=== PATIENT | female | born 1995 | race African-American/Black ===

== ENCOUNTER 2017-10-08 08:20 | Emergency (ER) | payer OTHER ==
[~2017-10-08] VITALS: Ht 160 cm; Wt 60.0 kg
[2017-10-08 08:24] VITALS: BP 137/94
[2017-10-08] MEDS ORDERED: IBUPROFEN 100MG/5ML UDC PO ONE (10:45)
== END 2017-10-08 11:07 | disposition left against medical advice (07) ==
LOC: ER 08:59
DX: R05 Cough (principal); Z53.21 Procedure and treatment not carried out due to patient leaving prior to being seen by health care provider

== ENCOUNTER 2018-06-04 04:44 | Emergency (ER) | payer MEDICAID ==
[~2018-06-04] VITALS: Ht 160 cm; Wt 67.7 kg
[2018-06-04 05:46] LABS: BASOPHILS % 0.5 % (0.0-2.0); EOSINOPHILS % 1.2 % (0.0-5.0); HEMATOCRIT. 37.7 % (36.0-48.0); HEMOGLOBIN. 13.1 g/dL (12.0-16.0); LYMPHOCYTES % 16.5 % (20.0-50.0); MEAN CORPUSCULAR HEMOGLOBIN 32.7 pg (28.0-32.0); NEUTROPHILS % 74.8 % (40.0-76.0); PLATELET 176 x1000/uL (130-400); RED BLOOD CELL COUNT 4.01 mill/uL (4.2-5.4); RED CELL DISTRIBUTION WIDTH 12.6 % (11.6-14.6)
[2018-06-04 05:51] LABS: CHLORIDE 106 mEq/L (98-107); PROTHROMBIN TIME 10.5 sec (9.1-11.1)
[2018-06-04 06:14] LABS: B-HCG QUANTITATIVE 37552 mIU/mL (<3)
[2018-06-04 06:30] VITALS: BP 103/67
[2018-06-04 08:23] LABS: CLARITY URINE CLEAR (CLEAR); COLOR URINE YELLOW (YELLOW); KETONES URINE NEGATIVE (NEGATIVE); LEUKOCYTE ESTERASE URINE 1+ (NEGATIVE); NITRITE URINE NEGATIVE (NEGATIVE); OCCULT BLOOD URINE NEGATIVE (NEGATIVE); PH URINE 7.5 (4.5-8.0); PROTEIN URINE NEGATIVE (NEGATIVE); SPECIFIC GRAVITY URINE 1.007 (1.005-1.030); UROBILINOGEN URINE 0.2 E.U./dL (0.2-1.0)
[2018-06-04 09:41] LABS: *AMPHETAMINES SCREEN URINE NEGATIVE (NEGATIVE); *BARBITURATES SCREEN URINE NEGATIVE (NEGATIVE); *BENZODIAZEPINES SCREEN URINE NEGATIVE (NEGATIVE); *COCAINE SCREEN URINE NEGATIVE (NEGATIVE); CANNABINOID URINE SCREEN NEGATIVE (NEGATIVE); METHADONE URINE SCREEN NEGATIVE (NEGATIVE); OPIATES URINE SCREEN NEGATIVE (NEGATIVE); PHENCYCLIDINE URINE SCREEN NEGATIVE (NEGATIVE)
== END 2018-06-04 07:05 | disposition home or self-care (01) ==
LOC: ER 04:44
DX: R10.9 Unspecified abdominal pain (principal); Y08.89XA Assault by other specified means, initial encounter
CPT/HCPCS: 36415; 80305; 84702; 99284

== ENCOUNTER 2018-06-22 09:28 | Observation (INO) | payer MEDICAID ==
[~2018-06-22] VITALS: Ht 160 cm; Wt 70.3 kg
[2018-06-22] MEDS ORDERED: FOLI0.4T2 MT (10:27)
[2018-06-22] MEDS ORDERED: PREN1TAB78 MT (10:27)
[2018-06-22] MEDS: LACTATED RINGERS 1,000 ML IV SCH ×2 (10:50→13:11)
[2018-06-22] MEDS ORDERED: ALBUTEROL (11:12)
== END 2018-06-22 14:00 | disposition home or self-care (01) ==
LOC: L&D 09:28
PROVIDERS: ADMIT Obstetrics & Gynecology; ATTEND Obstetrics & Gynecology
DX: O9A.313 Physical abuse complicating pregnancy, third trimester (principal); R51 Headache; O62.9 Abnormality of forces of labor, unspecified; Y04.0XXA Assault by unarmed brawl or fight, initial encounter; Y92.89 Other specified places as the place of occurrence of the external cause; Y93.89 Activity, other specified; Z3A.34 34 weeks gestation of pregnancy
CPT/HCPCS: 76805; 76818; 99281; G0378; 96360; 96361; J7120

== ENCOUNTER 2018-11-26 20:12 | Emergency (ER) | payer SELFPAY ==
[~2018-11-26] VITALS: Ht 165.1 cm; Wt 61.0 kg
[~2018-11-26 20:12] MED LIST: ALBUTEROL; FOLI0.4T2 MT; PREN1TAB78 MT
[2018-11-26 20:42] VITALS: BP 141/100
== END 2018-11-26 22:19 | disposition left against medical advice (07) ==
LOC: ER 20:29
DX: S09.90XA Unspecified injury of head, initial encounter (principal); Z53.21 Procedure and treatment not carried out due to patient leaving prior to being seen by health care provider

== ENCOUNTER 2018-11-27 07:01 | Emergency (ER) | payer SELFPAY ==
[~2018-11-27] VITALS: Ht 160 cm; Wt 61.0 kg
[2018-11-27 07:26] VITALS: BP 123/72
[2018-11-27] MEDS ORDERED: ACETAMINOPHEN 325MG TABLET PO ONE (08:15)
== END 2018-11-27 09:59 | disposition home or self-care (01) ==
LOC: ER 07:01
DX: S00.12XA Contusion of left eyelid and periocular area, initial encounter (principal); J45.909 Unspecified asthma, uncomplicated; F12.10 Cannabis abuse, uncomplicated; Z79.899 Other long term (current) drug therapy; Y08.89XA Assault by other specified means, initial encounter; Y93.89 Activity, other specified; Y92.89 Other specified places as the place of occurrence of the external cause; Y99.8 Other external cause status
CPT/HCPCS: 70486; 81025; 99284

== ENCOUNTER 2020-01-18 07:33 | Inpatient (IN) | payer MEDICAID ==
[~2020-01-18] VITALS: Ht 157.5 cm; Wt 78.0 kg
[2020-01-18] MEDS ORDERED: DEXT 5%/LACTATED RINGERS 1,000 ML IV SCH (08:34)
[2020-01-18] MEDS ORDERED: LACTATED RINGERS 1,000 ML IV SCH (08:34)
[2020-01-18] MEDS ORDERED: DEXT 5%/LR + PITOCIN 20UNITS/L 1,000 ML IV SCH ×3 (08:34→23:30)
[2020-01-18] MEDS ORDERED: METHYLERGONOVINE MALEATE 0.2 MG/ML IM PRN ×2 (08:45)
[2020-01-18] MEDS ORDERED: LIDOCAINE HCL 1% 20ML VIAL (Pyxis) INJ INFIL SCH ×2 (08:45)
[2020-01-18] MEDS ORDERED: NALOXONE HCL 0.4 MG/ML 1ML VIAL IM PRN ×2 (08:45)
[2020-01-18] MEDS ORDERED: CARBOPROST TROMETHAMINE 250 MCG/ML AMPUL IM PRN ×2 (08:45)
[2020-01-18] MEDS ORDERED: MISOPROSTOL 100MCG TABLET VG SCH ×2 (08:45)
[2020-01-18] MEDS ORDERED: BUTORPHANOL TARTRATE 2 MG/ML VIAL IV PRN ×2 (08:45)
[2020-01-18] MEDS: LACTATED RINGERS 1,000 ML IV SCH ×2 (08:50→11:41)
[2020-01-18 08:55] LABS: CLARITY URINE CLOUDY (CLEAR); COLOR URINE DARK YELLOW (YELLOW); KETONES URINE NEGATIVE (NEGATIVE); LEUKOCYTE ESTERASE URINE 2+ (NEGATIVE); NITRITE URINE NEGATIVE (NEGATIVE); OCCULT BLOOD URINE NEGATIVE (NEGATIVE); PH URINE 7.5 (4.5-8.0); PROTEIN URINE 1+ (NEGATIVE); SPECIFIC GRAVITY URINE 1.022 (1.005-1.030)
[2020-01-18 08:58] LABS: BASOPHILS % 0.5 % (0.0-2.0); EOSINOPHILS % 0.7 % (0.0-5.0); HEMATOCRIT. 35.5 % (36.0-48.0); HEMOGLOBIN. 12.7 g/dL (12.0-16.0); LYMPHOCYTES % 24.5 % (20.0-50.0); MEAN CORPUSCULAR HEMOGLOBIN 33.8 pg (28.0-32.0); MEAN CORPUSCULAR VOLUME 94.4 fL (81.0-99.0); MEAN PLATELET VOLUME 8.6 fl (7.4-10.4); MONOCYTES % 7.6 % (2.0-8.0); NEUTROPHILS % 66.7 % (40.0-76.0); PLATELET 160 x1000/uL (130-400); RED BLOOD CELL COUNT 3.76 mill/uL (4.2-5.4); RED CELL DISTRIBUTION WIDTH 12.5 % (11.6-14.6)
[2020-01-18 09:05] LABS: PARTIAL THROMBOPLASTIN TIME 26.8 sec (23.4-31.0); PROTHROMBIN TIME 10.3 sec (9.6-11.0)
[2020-01-18 09:28] LABS: *AMPHETAMINES SCREEN URINE NEGATIVE (NEGATIVE); *BARBITURATES SCREEN URINE NEGATIVE (NEGATIVE); *BENZODIAZEPINES SCREEN URINE NEGATIVE (NEGATIVE); CANNABINOID URINE SCREEN NEGATIVE (NEGATIVE); METHADONE URINE SCREEN NEGATIVE (NEGATIVE); OPIATES URINE SCREEN NEGATIVE (NEGATIVE); PHENCYCLIDINE URINE SCREEN NEGATIVE (NEGATIVE)
[2020-01-18 09:29] LABS: *COCAINE SCREEN URINE NEGATIVE (NEGATIVE)
[2020-01-18 09:35] LABS: HEPATITIS B SURFACE ANTIGEN NEGATIVE
[2020-01-18] MEDS ORDERED: DEXT 5%/LR + PITOCIN 20UNITS/L 1,000 ML IV ONE (10:15)
[2020-01-18 11:47] LABS: PARTIAL THROMBOPLASTIN TIME 27.4 sec (23.4-31.0); PROTHROMBIN TIME 10.4 sec (9.6-11.0)
[2020-01-18] MEDS ORDERED: METOCLOPRAMIDE HCL 10MG/2ML VIAL IV PRN (19:00)
[2020-01-18] MEDS ORDERED: DIPHENHYDRAMINE 50MG/ML VIAL IM PRN (19:00)
[2020-01-18] MEDS ORDERED: ROPIVACAINE HCL/PF EPIDURAL 200 ML EPI SCH (19:00)
[2020-01-18] MEDS ORDERED: ONDANSETRON HCL 4MG/2ML INJ IV PRN (19:00)
[2020-01-18] MEDS ORDERED: DIPHENHYDRAMINE 50MG/ML VIAL IV PRN (19:00)
[2020-01-19] MEDS ORDERED: METHYLERGONOVINE MALEATE 0.2 MG/ML ONE (00:30)
[2020-01-19] MEDS: DEXT 5%/LR + PITOCIN 20UNITS/L 1,000 ML IV SCH ×2 (00:35→01:50)
[2020-01-19 02:50] VITALS: BP 116/53
[2020-01-19] MEDS ORDERED: LANOLIN OINT 7GM TUBE TOP PRN ×2 (04:30→12:00)
[2020-01-19 07:30] VITALS: BP 106/57
[2020-01-19] MEDS ORDERED: DEXT 5%/LR + PITOCIN 20UNITS/L 1,000 ML IV SCH (11:50)
[2020-01-19] MEDS ORDERED: GLYCERIN/WITCH HAZEL LEAF MEDICATED PAD TOP PRN (12:00)
[2020-01-19] MEDS ORDERED: ACETAMINOPHEN 500MG TABLET PO PRN (12:00)
[2020-01-19] MEDS ORDERED: ACETAMINOPHEN WITH CODEINE 300/30MG TABLET PO PRN (12:00)
[2020-01-19] MEDS ORDERED: IBUPROFEN 400MG TABLET PO PRN (12:00)
[2020-01-19 16:50] VITALS: BP 101/58
[2020-01-19 21:30] VITALS: BP 104/59
[2020-01-19] MEDS: SIMETHICONE 80MG TABLET CHEW PO SCH (21:34)
[2020-01-19] MEDS: MAGNESIUM/ALUMINUM HYDROXIDE/SIMETHICONE 30ML UDC PO SCH (21:35)
[2020-01-20] MEDS ORDERED: IBUP-2028 PO (05:44)
[2020-01-20 06:33] LABS: BASOPHILS % 0.4 % (0.0-2.0); EOSINOPHILS % 1.3 % (0.0-5.0); HEMATOCRIT. 30.4 % (36.0-48.0); HEMOGLOBIN. 10.8 g/dL (12.0-16.0); LYMPHOCYTES % 23.1 % (20.0-50.0); MEAN CORPUSCULAR HEMOGLOBIN 33.5 pg (28.0-32.0); MEAN PLATELET VOLUME 8.3 fl (7.4-10.4); MONOCYTES % 5.5 % (2.0-8.0); NEUTROPHILS % 69.7 % (40.0-76.0); PLATELET 159 x1000/uL (130-400); RED BLOOD CELL COUNT 3.23 mill/uL (4.2-5.4); RED CELL DISTRIBUTION WIDTH 12.5 % (11.6-14.6)
[2020-01-20] MEDS: MAGNESIUM/ALUMINUM HYDROXIDE/SIMETHICONE 30ML UDC PO SCH (07:30)
[2020-01-20 08:00] VITALS: BP 104/63
[2020-01-20] MEDS: SIMETHICONE 80MG TABLET CHEW PO SCH (08:00)
== END 2020-01-20 11:15 | disposition home or self-care (01) | DRG 560 ==
LOC: 8 EST LDRP 07:33 → 8EST 01-19 02:45
PROVIDERS: ADMIT Obstetrics & Gynecology; ATTEND Obstetrics & Gynecology
PROC: 10E0XZZ Delivery of Products of Conception, External Approach (ICD-10-PCS; principal; 2020-01-19)
PROC: 3E0R3BZ Introduction of Anesthetic Agent into Spinal Canal, Percutaneous Approach (ICD-10-PCS; 2020-01-19)
PROC: 00HU33Z Insertion of Infusion Device into Spinal Canal, Percutaneous Approach (ICD-10-PCS; 2020-01-19)
DX: O48.0 Post-term pregnancy (principal); Z37.0 Single live birth; Z3A.39 39 weeks gestation of pregnancy
CPT/HCPCS: 36415; 80305; 81003; 85025; 86592; 86703; 86762; 86850; 86900; 87340; G0378; J2210; J2590; J2795; J7120; J7121

== ENCOUNTER 2022-12-29 05:23 | Emergency (ER) | payer MEDICAID, OTHER ==
[~2022-12-29] VITALS: Ht 160 cm; Wt 71.5 kg
[~2022-12-29 05:23] MED LIST changes: -FOLI0.4T2 MT; +FOLI0.4T6 MT; +IBUP-2028 PO
[2022-12-29 05:36] VITALS: BP 112/79
[2022-12-29] MEDS ORDERED: ACETAMINOPHEN 325MG TABLET PO ONE (06:30)
[2022-12-29] MEDS ORDERED: AMOX1TAB16 PO (06:30)
[2022-12-29] MEDS ORDERED: TOPUD PO (06:30)
== END 2022-12-29 07:04 | disposition home or self-care (01) ==
LOC: ER 05:23
DX: J02.9 Acute pharyngitis, unspecified (principal); B34.9 Viral infection, unspecified; J45.909 Unspecified asthma, uncomplicated; F12.10 Cannabis abuse, uncomplicated; Z20.822 Contact with and (suspected) exposure to COVID-19
CPT/HCPCS: 87070; 87426; 87430; 99283; C9803

== ENCOUNTER 2023-07-05 08:44 | Emergency (ER) | payer MEDICAID, OTHER ==
[~2023-07-05] VITALS: Ht 160 cm; Wt 77.1 kg
[~2023-07-05 08:44] MED LIST changes: +AMOX1TAB16 PO; +TOPUD PO
[2023-07-05 08:52] VITALS: BP 165/105; PULSE 97; RESP 16; TEMP 98.2; O2SAT 100
[2023-07-05] MEDS ORDERED: OCUFLX RIGHTEYE (10:30)
== END 2023-07-05 11:08 | disposition home or self-care (01) ==
LOC: ER 08:44
DX: H10.9 Unspecified conjunctivitis (principal)
CPT/HCPCS: 99283

== ENCOUNTER 2024-03-02 14:21 | Emergency (ER) | payer MEDICAID, OTHER ==
[~2024-03-02] VITALS: Ht 160 cm; Wt 68.0 kg
[~2024-03-02 14:21] MED LIST changes: +OCUFLX RIGHTEYE
[2024-03-02 14:49] VITALS: O2SAT 100
[2024-03-02] MEDS: IBUPROFEN 600MG TABLET PO ONE (16:30)
[2024-03-02] MEDS: LIDOCAINE HCL/PF 1% 10 MG/ML 5ML VIAL INFIL ONE (16:30)
[2024-03-02] MEDS: BACITRACIN ZINC OINT UDPKT TOP ONE (16:30)
[2024-03-02] MEDS ORDERED: SULF1TAB48 MT (16:47)
[2024-03-02 17:18] VITALS: BP 136/78; PULSE 74; RESP 16; TEMP 98.7
== END 2024-03-02 17:32 | disposition home or self-care (01) ==
LOC: ER 14:25
DX: L02.412 Cutaneous abscess of left axilla (principal); J45.909 Unspecified asthma, uncomplicated; F12.10 Cannabis abuse, uncomplicated; Z79.899 Other long term (current) drug therapy
CPT/HCPCS: 10060; 99283; J3490; Z7610 ×2